=== PATIENT | female | born 1950 | race Caucasian/White ===

== ENCOUNTER 2018-07-18 05:32 | Day surgery (SDC) | payer OTHER, MEDICARE ==
[~2018-07-18] VITALS: Ht 154.9 cm; Wt 107.9 kg
[~2018-07-18 05:32] MED LIST: ALOS0.5T PO; ASPI-555 PO; BIOT10005 PO; CHON250C PO; ENAL2.5T PO; FISH1CAP63 PO; GLUC100019 PO; INSU3INS5 SQ; METF-446 PO; MULT-1203 PO; MV-M1TAB20 PO; PRAV40TA3 PO; SPIR50TA PO
[2018-07-18] MEDS ORDERED: SODIUM CHLORIDE 0.9% 1000ML 1,000 ML IV ONE (05:45)
[2018-07-18 06:10] VITALS: BP 150/60
[2018-07-18] MEDS ORDERED: PROPOFOL 10 MG/ML 20ML VIAL IV ONE (07:05)
[2018-07-18 07:27] VITALS: BP 128/69
[2018-07-18 07:31] VITALS: BP 134/62
[2018-07-18 07:38] VITALS: BP 144/54
[2018-07-18] MEDS ORDERED: IPRATROPIUM/ALBUTEROL SULFATE 3 ML SOLUTION IH ONE (07:42)
[2018-07-18 07:53] VITALS: BP 138/58
[2018-07-18 08:18] VITALS: BP 138/71
== END 2018-07-18 08:25 | disposition home or self-care (01) ==
LOC: ENDO 05:32 → DAH 05:32 → ENDO 08:25
PROVIDERS: ATTEND Internal Medicine
DX: D12.3 Benign neoplasm of transverse colon (principal); K57.30 Diverticulosis of large intestine without perforation or abscess without bleeding; K64.4 Residual hemorrhoidal skin tags; K64.1 Second degree hemorrhoids; I10 Essential (primary) hypertension; Z68.42 Body mass index [BMI] 45.0-49.9, adult; J45.909 Unspecified asthma, uncomplicated; E11.9 Type 2 diabetes mellitus without complications; Z85.3 Personal history of malignant neoplasm of breast; Z95.5 Presence of coronary angioplasty implant and graft; Z98.890 Other specified postprocedural states; Z80.0 Family history of malignant neoplasm of digestive organs; Z79.899 Other long term (current) drug therapy; E78.5 Hyperlipidemia, unspecified; I25.10 Atherosclerotic heart disease of native coronary artery without angina pectoris; E66.01 Morbid (severe) obesity due to excess calories
CPT/HCPCS: 45380; 82948 ×2; 88305; 93005; 94640; A4606; J2704; J7030

== ENCOUNTER → 2020-04-03 | Outpatient (CLI) | payer MEDICARE ==
[~2020-04-03] MED LIST changes: -ASPI-555 PO; +ASPI-556 PO
== END | disposition home or self-care (01) ==
LOC: SHCH 07:40
PROVIDERS: ATTEND Internal Medicine Cardiovascular Disease
DX: I10 Essential (primary) hypertension (principal); R01.1 Cardiac murmur, unspecified; I73.9 Peripheral vascular disease, unspecified; R09.89 Other specified symptoms and signs involving the circulatory and respiratory systems
CPT/HCPCS: 93306; 93880; 93925

== ENCOUNTER → 2020-04-04 | Outpatient (CLI) | payer MEDICARE ==
[~2020-04-04] MED LIST changes: +REGADENOSON 0.4 MG/5 ML PF SYG IVP SCH
== END | disposition home or self-care (01) ==
LOC: SHCH 07:51
PROVIDERS: ATTEND Internal Medicine Cardiovascular Disease
DX: I10 Essential (primary) hypertension (principal); I25.10 Atherosclerotic heart disease of native coronary artery without angina pectoris
CPT/HCPCS: 78452; 93017; 96374; A9500 ×2; J2785

== ENCOUNTER 2020-05-07 05:50 | Day surgery (SDC) | payer MEDICARE ==
[2020-05-06 12:46] LABS: BASOPHILS % (AUTO) 0.9 % (0.0-5.0); EOSINOPHILS % (AUTO) 2.8 % (0.0-8.0); HEMATOCRIT 43.9 % (36-48); LYMPHOCYTES % (AUTO) 34.2 % (21.0-51.0); MEAN CORPUSCULAR HEMOGLOBIN 28.3 pg (27.0-33.0); MEAN CORPUSCULAR HGB CONC 32.3 g/dL (32.0-36.0); MEAN CORPUSCULAR VOLUME 87.6 fL (79-99); NEUTROPHILS % (AUTO) 52.6 % (40.0-77.0); PLATELET COUNT (AUTO) 267 K/uL (130-400); RED BLOOD CELL COUNT(AUTO) 5.01 MIL/uL (4.00-5.50); RED CELL DISTRIBUTION WIDTH 13.8 % (11.0-15.5); WHITE BLOOD COUNT (AUTO) 10.8 K/uL (4.8-10.8)
[2020-05-06 12:54] LABS: APPEARANCE,URINE Clear (CLEAR); BILIRUBIN,URINE Negative (NEGATIVE); COLOR,URINE Yellow (YELLOW); GLUCOSE, URINE (UA) 500 mg/dL (NEGATIVE); KETONES,URINE Negative (NEGATIVE); LEUKOCYTE ESTERASE ,URINE Small (NEGATIVE); NITRATE,URINE Negative (NEGATIVE); OCCULT BLOOD,URINE Negative (NEGATIVE); PROTEIN,URINE Negative (NEGATIVE); UROBILINOGEN,URINE 0.2 mg/dL (0.2-1.0)
[2020-05-06 13:02] LABS: CREATININE 0.7 mg/dL (0.5-1.5); POTASSIUM 4.3 mmol/L (3.5-5.1)
[2020-05-06 13:03] LABS: BACTERIA,URINE Rare /HPF (None Seen); INR 0.94 (0.85-1.15); PARTIAL THROMBOPLASTIN TIME 27.4 SEC (26.3-35.5); PROTHROMBIN TIME 10.2 SEC (9.6-11.6); RBC,URINE 0-1 /HPF (0-1); SQUAMOUS EPITHELIAL CELL,UR 0-2 /HPF (0-2)
--- NOTE | 2020-05-06 14:05 | NUR ---
patient request procedure be done right radial , new order per Benito Harvey to proceed right radial approach, reported urine results of urine leukest small, wbc 2-5 , no new orders for urine results.
[2020-05-07] VITALS (14 sets, daily range): BP systolic 115–137; BP diastolic 44–78
[~2020-05-07] VITALS: Ht 157.5 cm; Wt 77.7 kg
[~2020-05-07 05:50] MED LIST changes: -ASPI-556 PO; +ASPI-891 PO; +CETI10TA57 PO; -ENAL2.5T PO; +ENAL2.5T16 PO; +FISH1CAP50 PO; -FISH1CAP63 PO; +GABA300C PO; -MULT-1203 PO; -REGADENOSON 0.4 MG/5 ML PF SYG IVP SCH; +[UNRECOGNIZED DRUG - OTHER] PO
[2020-05-07] MEDS ORDERED: SODIUM CHLORIDE 0.9% 1000ML 1,000 ML IV ONE (06:16)
[2020-05-07] MEDS ORDERED: LETR2.5T7 PO (07:29)
[2020-05-07] MEDS ORDERED: ASPI-1443 PO (07:29)
[2020-05-07] MEDS ORDERED: METO25TA6 PO (07:30)
[2020-05-07] MEDS ORDERED: VITAMIN D3 PO (07:33)
[2020-05-07] MEDS ORDERED: INSULIN HUMULIN R 100 UNIT/ML 3ML ONE (07:56)
[2020-05-07] MEDS ORDERED: SODIUM CHLORIDE 0.9% 1000ML 1,000 ML IV SCH ×2 (08:00→11:15)
[2020-05-07] MEDS ORDERED: SODIUM BICARB 50MEQ 50ML VIAL ONE (08:35)
[2020-05-07] MEDS ORDERED: NITROGLYCERIN 2 MG/VIAL VIAL IV ONE (08:36)
[2020-05-07] MEDS ORDERED: IOHEXOL 350 MG/ML 100ML INFUS..BTL IV ONE (08:36)
[2020-05-07] MEDS ORDERED: HEPARIN SODIUM 1000UNIT/ML 10ML VIAL ONE (08:36)
[2020-05-07] MEDS ORDERED: NICARDIPINE HCL 25 MG/10 ML ML IV ONE (08:36)
[2020-05-07] MEDS ORDERED: MEPERIDINE-PF 25 MG/ML SYG ONE ×2 (08:36→09:46)
[2020-05-07] MEDS ORDERED: IOHEXOL-350 50ML VIAL IV ONE (08:36)
[2020-05-07] MEDS ORDERED: MIDAZOLAM HCL 1 MG/ML 2ML VIAL ONE ×2 (08:37→09:46)
[2020-05-07] MEDS ORDERED: LIDOCAINE HCL 2% 20ML ONE (08:37)
[2020-05-07] MEDS ORDERED: CLOPIDOGREL BISULFATE 300 MG TAB ONE (11:00)
[2020-05-07] MEDS ORDERED: ASPIRIN 325MG EC TAB 325 MG TABLET.DR PO ONE (11:00)
[2020-05-07] MEDS ORDERED: ACETAMINOPHEN 325 MG TAB PO PRN (11:15)
[2020-05-07] MEDS ORDERED: INSULIN HUMULIN R 100 UNIT/ML 3ML SQ SCH (11:30)
--- NOTE | 2020-05-07 11:45 | NUR ---
Pt received Pt was received from agriculture laborer accompanied by MARTIN Syed and MARTIN Marcus via bed. Pt arrived with TR band to right wrist. Pt awake and alert. Denies any c/o. VS wnl. Pulse ox applied to right index number. Sats ranging from 95-98%. Puncture site with no bleeding and no hematoma noted. IV fluids at 100ml/hr. Instructions reviewed with pt and verbalized understanding. Pt resting at this time with call light within reach.
--- NOTE | 2020-05-07 13:30 | NUR ---
TRBAND 2ML OF AIR REMOVED FROM TRBAND = 10 ML REMAIN. NO BLEEDING OR HEMATOMA TO SITE
--- NOTE | 2020-05-07 14:00 | NUR ---
TRBAND REMOVED 2ML OF AIR FROM TR BAND,NO 8ML LEFT . NO BLEEDING OR HEMATOMA TO SITE
--- NOTE | 2020-05-07 14:30 | NUR ---
DC INSTRUCTIONS GIVEN TO FAMILY PER MARTIN MAYFIELD.
--- NOTE | 2020-05-07 14:30 | NUR ---
trband removed 2 ml of air from trband 6ml left on trband, no bleeding or hematoma to site
--- NOTE | 2020-05-07 14:54 | NUR ---
report report given to rey ochoa rn to resume care of patient
--- NOTE | 2020-05-07 14:55 | NUR ---
REPORT RECEIVED REPORT FROM MARTIN MAYFIELD. PT LYING IN BED. TRBAND IN PLACE TO RIGHT HAND. NO BLEEDING, OOZING NOTED TO SITE.
== END 2020-05-07 20:00 | disposition home or self-care (01) ==
LOC: DAH 05:50
PROVIDERS: ATTEND Internal Medicine Cardiovascular Disease
DX: I25.10 Atherosclerotic heart disease of native coronary artery without angina pectoris (principal); I10 Essential (primary) hypertension; E78.5 Hyperlipidemia, unspecified; E11.9 Type 2 diabetes mellitus without complications; E66.9 Obesity, unspecified; Z85.3 Personal history of malignant neoplasm of breast; Z79.01 Long term (current) use of anticoagulants; Z79.899 Other long term (current) drug therapy
CPT/HCPCS: 36415; 71045; 80048; 81001; 82948 ×3; 85025; 85610; 85730; 93005; 93458; 96360; 96361; A4215; A4216; A4221; A4222; A4223 ×3; A4606; A4663; C1769 ×2; C1874 ×2; C1887 ×2; C1894; C9600; J1644 ×2; J1815 ×2; J2175 ×2; J2250 ×2; J3490 ×4; J7030; Q9965 ×2; Q9967 ×2; 99156; 99157

== ENCOUNTER → 2023-09-08 | Outpatient (CLI) | payer MEDICARE ==
[~2023-09-08] MED LIST changes: -ALOS0.5T PO; +ASPI-1443 PO; -ASPI-891 PO; -CHON250C PO; +LETR2.5T7 PO; +METO25TA6 PO; -MV-M1TAB20 PO; +VITAMIN D3 PO
== END | disposition home or self-care (01) ==
LOC: SHCH 12:32
PROVIDERS: ATTEND Internal Medicine Cardiovascular Disease
DX: I08.0 Rheumatic disorders of both mitral and aortic valves (principal); I25.10 Atherosclerotic heart disease of native coronary artery without angina pectoris; I65.23 Occlusion and stenosis of bilateral carotid arteries
CPT/HCPCS: 93306; 93880

== ENCOUNTER → 2023-11-08 | Outpatient (CLI) | payer MEDICARE ==
[~2023-11-08] MED LIST changes: +REGADENOSON 0.4 MG/5 ML PF SYG IVP ONE
== END | disposition home or self-care (01) ==
LOC: SHCH 07:51
PROVIDERS: ATTEND Internal Medicine Cardiovascular Disease
DX: I11.9 Hypertensive heart disease without heart failure (principal); I49.1 Atrial premature depolarization; Z95.5 Presence of coronary angioplasty implant and graft
CPT/HCPCS: 78452; 96374; 93017; J2785; A9500 ×2

== ENCOUNTER → 2024-01-20 | Outpatient (CLI) | payer MEDICARE ==
[~2024-01-20] MED LIST changes: +ALBUHFA IH; -BIOT10005 PO; +CHOL500045 PO; -ENAL2.5T16 PO; +ENAL2.5T71 PO; +FLUT16H NASAL; +FLUT1BLS15 IH; -GABA300C PO; -GLUC100019 PO; -INSU3INS5 SQ; -LETR2.5T7 PO; -METF-446 PO; -REGADENOSON 0.4 MG/5 ML PF SYG IVP ONE; -SPIR50TA PO; -VITAMIN D3 PO; -[UNRECOGNIZED DRUG - OTHER] PO
[2024-01-20 12:23] LABS: BASOPHILS # (AUTO) 0.08 K/uL (0.00-0.20); EOSINOPHILS # (AUTO) 0.31 K/uL (0.00-0.70); EOSINOPHILS % (AUTO) 3.8 % (0.0-8.0); HEMATOCRIT 37.6 % (36-48); IMMATURE GRANULOCYTE ABSOLUTE 0.03 K/uL (0-1); LYMPHOCYTES # (AUTO) 2.9 K/uL (1.0-4.8); LYMPHOCYTES % (AUTO) 34.9 % (21.0-51.0); MEAN CORPUSCULAR HEMOGLOBIN 27.7 pg (27.0-33.0); MEAN CORPUSCULAR HGB CONC 30.1 g/dL (32.0-36.0); MEAN CORPUSCULAR VOLUME 92.2 fL (79-99); MONOCYTES # (AUTO) 0.9 K/uL (0.1-1.0); MONOCYTES % (AUTO) 11.3 % (3.0-13.0); NEUTROPHILS % (AUTO) 48.6 % (40.0-77.0); PLATELET COUNT (AUTO) 245 K/uL (130-400); RED BLOOD CELL COUNT(AUTO) 4.08 MIL/uL (4.00-5.50); RED CELL DISTRIBUTION WIDTH 14.2 % (11.0-15.5); WHITE BLOOD COUNT (AUTO) 8.2 K/uL (4.8-10.8)
[2024-01-20 13:24] LABS: ALBUMIN 3.2 g/dL (3.5-5.0); BILIRUBIN,TOTAL 0.4 mg/dL (0.2-1.0); CREATININE 0.8 mg/dL (0.5-1.0); POTASSIUM 3.6 mmol/L (3.5-5.1); TOTAL PROTEIN, SERUM 7.1 g/dL (6.0-8.3)
== END | disposition home or self-care (01) ==
LOC: LAB 09:43
PROVIDERS: ATTEND Internal Medicine Cardiovascular Disease
DX: I10 Essential (primary) hypertension (principal)
CPT/HCPCS: 36415; 80053; 83880; 85025